=== PATIENT | female | born 1960 | race Caucasian/White ===

== ENCOUNTER 2017-02-07 07:38 | Day surgery (SDC) | payer OTHER ==
[~2017-02-07] VITALS: Ht 167.6 cm; Wt 74.8 kg
[~2017-02-07 07:38] MED LIST: 0.9% Sodium Chloride 1,000 ML IV SCH; BUPR75TA10 PO; KLO1T PO; Sodium Chloride LOK Flush 10 mL Syringe IV PRN; fentaNYL-PF 50 mCg/mL 2 mL Inj IVPUSH PRN
[2017-02-07 08:37] VITALS: BP 122/76; PULSE 66; O2SAT 97
[2017-02-07 10:10] VITALS: BP 110/68; PULSE 66; RESP 16; O2SAT 94
[2017-02-07 10:23] VITALS: BP 102/70; PULSE 87; RESP 16; O2SAT 98
--- NOTE | 2017-02-07 10:56 | ENDO ---
[address] [address] ENDOSCOPY PROCEDURE PATIENT: DAQUAN MARRUFO : 1960 MR#: [id number] ADMIT: 02/07/2017 JOB ID: [id number] DATE: 02/07/2017 PROCEDURE: Colonoscopy. INDICATION: Patient with personal history of colon polyps. The patient's ASA classification is 2. Mallampati score is 2. MEDICATIONS: 1. Versed 7 mg. 2. Fentanyl 100 mcg. INSTRUMENT USED: PCF H 180 AL. PREPARATION QUALITY: Was fair. PROCEDURE DETAILS: After informed consent was obtained, the patient was brought into the GI suite, where she was placed on oxygen via nasal cannula and monitored with continuous pulse oximeter, telemetry and blood pressure monitoring. A time-out was performed. Then, she was placed in the left lateral decubitus position and medications were administered for sedation. Digital rectal examination was performed, which was unremarkable. The colonoscope was then inserted into the rectum and advanced under direct visualization to the cecum, which was identified by the presence of the ileocecal valve and appendiceal orifice. Once the cecum was reached the colonoscope was withdrawn back to the rectum. Mucosa and lumen were examined. In the rectum, retroflexion was performed. Following retroflexion, remaining air in the rectum was suctioned, and the procedure was completed. FINDINGS: 1. In the sigmoid colon, there was a diminutive polyp that was removed with cold biopsy forceps. 2. In the rectum, there were two polyps that measured approximately 4 mm each that were removed with a cold snare. 3. Scattered diverticula were seen throughout the left side of the colon. IMPRESSION: 1. Sigmoid colon polyp. 2. Two rectal polyps. 3. Left-sided diverticulosis. RECOMMENDATIONS: 1. Fiber rich diet. 2. Repeat colonoscopy pending polyp pathology results. COMPLICATIONS: None. ESTIMATED BLOOD LOSS: Less than 5 mL.
--- NOTE | 2017-02-11 14:13 | PATH ---
SURGICAL PATHOLOGY Attending Physician:Donell Lara CASE STATUS: Signed Out PATIENT NAME: DAQUAN MARRUFO PID: [id number] : 1960 DATE COLLECTED:02/07/2017 15:05 SPECIMEN: 1: Colon, Polyp 2: Colon, Polyp CLINICAL HISTORY: 1). SIGMOID POLYP X1 2). CECAL POLYP X2 FINAL DIAGNOSIS: 1.SIGMOID COLON, POLYP, BIOPSY: HYPERPLASTIC POLYP. 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 1). The specimen is labeled "sigmoid" and consists of a 0.2 x 0.2 x 0.2 CM portion of tissue which is entirely submitted in cassette 1A. 2). The specimen is labeled "cecal polyp" and consists of 3 portions of tissue which aggregate to 0.3 x 0.3 x 0.3 CM. The specimen is entirely submitted in cassette 2A. 02/07/2017DC MICRO DESCRIPTION: See diagnosis. ICD-9 CODES: CPT CODES: 1: 23553 2: 19518 Electronically Signed Out Susan Charles MD [facility] [address], [place] [address] Technical component performed at [facility], [address] [place] [address] Ave[address], [address]
== END 2017-02-07 23:59 | disposition home or self-care (01) ==
LOC: END 07:38
PROVIDERS: ATTEND Internal Medicine Gastroenterology
DX: Z12.11 Encounter for screening for malignant neoplasm of colon (principal); Z86.010 Personal history of colon polyps; D12.8 Benign neoplasm of rectum; K63.5 Polyp of colon; D12.0 Benign neoplasm of cecum; K57.30 Diverticulosis of large intestine without perforation or abscess without bleeding; E03.9 Hypothyroidism, unspecified; F43.10 Post-traumatic stress disorder, unspecified; F41.8 Other specified anxiety disorders; F17.210 Nicotine dependence, cigarettes, uncomplicated
CPT/HCPCS: 45380; 45385; 99153; G0500; J2250; J3010; J7030